=== PATIENT | male | born 1970 | race Caucasian/White ===

== ENCOUNTER 2023-07-29 07:21 | Day surgery (SDC) | payer BC ==
[2023-07-29] MEDS ORDERED: Propofol 200 MG/20 ML SDV ONE (07:24)
[2023-07-29] MEDS ORDERED: Midazolam 1 MG/ML 2 ML SDV ONE (07:24)
[2023-07-29] MEDS ORDERED: fentaNYL 50 MCG/ML SDV ONE (07:24)
[2023-07-29] MEDS: Sodium Chloride 0.9% 1,000 ML IV SCH (07:38)
== END 2023-07-29 10:12 | disposition home or self-care (01) ==
LOC: JP.SDS 07:21
PROVIDERS: ATTEND Surgery
DX: Z12.11 Encounter for screening for malignant neoplasm of colon (principal); M54.50 Low back pain, unspecified; Z79.899 Other long term (current) drug therapy
CPT/HCPCS: 45378; J2250; J2704; J3010; J7030